=== PATIENT | male | born 2000 | race Caucasian/White ===

== ENCOUNTER 2023-06-18 08:30 | Outpatient (RCR) | payer BC ==
[~2023-06-18 08:30] MED LIST: CEPHALEXIN250 MG/5 M PO; NO HOME MEDICATIONS
== END 2023-07-07 | disposition home or self-care (01) ==
LOC: PT.GENESIS
DX: Z47.89 Encounter for other orthopedic aftercare (principal); S82.52XD Displaced fracture of medial malleolus of left tibia, subsequent encounter for closed fracture with routine healing; X58.XXXD Exposure to other specified factors, subsequent encounter